=== PATIENT | male | born 1995 | race Caucasian/White ===

== ENCOUNTER 2019-05-05 05:23 | Day surgery (SDC) | payer OTHER ==
[2019-04-28 09:30] LABS: ABSOLUTE EOSINOPHILS # (AUTO) 0.1 10^3/uL (0.0-0.6); ABSOLUTE LYMPHOCYTES (AUTO) 1.4 10^3/uL (0.5-4.7); ABSOLUTE MONOCYTES (AUTO) 0.4 10^3/uL (0.1-1.4); ABSOLUTE NEUT (AUTO) 2.6 10^3/uL (1.7-8.2); EOSINOPHILS % (AUTO) 2.9 % (0-6); HEMATOCRIT 45.9 % (37.9-51.0); HEMOGLOBIN 16.1 g/dL (13.5-17.0); LYMPHOCYTES % (AUTO) 30.9 % (13-45); MEAN CORPUSCULAR HEMOGLOBIN 32.4 pg (27.0-33.4); MEAN CORPUSCULAR HGB CONC 35.1 g/dL (32.0-36.0); MEAN CORPUSCULAR VOLUME 92 fl (80-97); MONOCYTES % (AUTO) 8.3 % (3-13); PLATELET COUNT 137 10^3/uL (150-450); RED BLOOD COUNT 4.97 10^6/uL (4.35-5.55); RED CELL DISTRIBUTION WIDTH 12.9 % (11.5-14.0); SEGMENTED NEUTROPHILS % (AUTO) 56.9 % (42-78); TOTAL CELLS COUNTED % (AUTO) 100 %; WHITE BLOOD COUNT 4.5 10^3/uL (4.0-10.5)
[2019-04-28 10:04] LABS: ANION GAP 8 (5-19); BLOOD UREA NITROGEN 15 mg/dL (7-20); CALCIUM 9.3 mg/dL (8.4-10.2); CARBON DIOXIDE 27 mmol/L (22-30); CHLORIDE 102 mmol/L (98-107); GLUCOSE 94 mg/dL (75-110); POTASSIUM 4.4 mmol/L (3.6-5.0)
[~2019-05-05 05:23] MED LIST: CEFAZOLIN SODIUM 2 GM in DEXTROSE 5%-WATER 100 ML IV PRN; DEXAMETHASONE SOD PHOSPHATE INJ 4 MG/1 ML VIAL ONE; KETOROLAC TROMETHAMINE 60 MG/2 ML SDV ONE; LACTATED RINGERS 1000 ML IV PRN; LIDOCAINE 0.5% INJ-PF (5 MG/ML) 50 ML SDV SUBCUT PRN; ONDANSETRON HCL INJ/PF 4 MG/2 ML SDV ONE; ROCURONIUM BROMIDE INJ 50 MG/5 ML VIAL IV ONE; SUCCINYLCHOLINE CHLORIDE INJ 200 MG/10 ML VIAL ONE
[2019-05-05] MEDS ORDERED: FENTANYL CITRATE INJ/PF 100 MCG/2 ML AMPUL ONE (06:49)
[2019-05-05] MEDS ORDERED: MIDAZOLAM 2 MG/2 ML INJ ONE ×2 (06:50)
[2019-05-05] MEDS ORDERED: PROPOFOL INJ 200 MG/20 ML VIAL IV ONE (06:50)
[2019-05-05] MEDS ORDERED: LIDOCAINE 2% INJ (20 MG/ML) 20 ML MDV ONE (06:53)
[2019-05-05] MEDS ORDERED: BUPIVACAINE HCL 0.5 % INJ/PF 30 ML SDV ONE (07:10)
[2019-05-05] MEDS ORDERED: PROMETHAZINE HCL INJ 25 MG/1 ML VIAL IV PRN (07:59)
[2019-05-05] MEDS ORDERED: ONDANSETRON HCL INJ/PF 4 MG/2 ML SDV IV PRN ×2 (07:59→12:21)
[2019-05-05] MEDS ORDERED: OXYCODONE-ACETAMINOPHEN 5-325 MG TABLET PO PRN ×3 (07:59→12:21)
[2019-05-05] MEDS ORDERED: FENTANYL CITRATE INJ/PF 100 MCG/2 ML AMPUL IV PRN ×3 (07:59)
[2019-05-05] MEDS ORDERED: DIPHENHYDRAMINE HCL 50 MG/ML VIAL IV PRN (07:59)
[2019-05-05] MEDS ORDERED: MORPHINE SULFATE 10 MG/ML INJ IV PRN (07:59)
[2019-05-05] MEDS ORDERED: MEPERIDINE HCL/PF INJ 25 MG/1 ML DISP.SYRIN IV PRN (07:59)
[2019-05-05] MEDS ORDERED: HYDROMORPHONE HCL INJ/PF 2 MG/ML AMPULE IV PRN (12:21)
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
[2019-05-05] MEDS ORDERED: OXYCODONE-ACETAMINOPHEN 5-325 MG TABLET ONE (13:00)
[2019-05-05 14:19] VITALS: BP 128/74
== END 2019-05-05 14:10 | disposition home or self-care (01) ==
LOC: OROUT 05:23
PROVIDERS: ATTEND Orthopaedic Surgery
DX: G56.22 Lesion of ulnar nerve, left upper limb (principal); D36.12 Benign neoplasm of peripheral nerves and autonomic nervous system, upper limb, including shoulder; S64.02XA Injury of ulnar nerve at wrist and hand level of left arm, initial encounter; W34.00XA Accidental discharge from unspecified firearms or gun, initial encounter
CPT/HCPCS: 36415; 85025; 80048; 88305 ×2; 01810; 64718; 64999; C9250; J2250; J3490 ×3; J0690; J1100; J1885; J3010; J0330; J2405; J7060; J2704; 1810